=== PATIENT | female | born 1990 | race American Indian/Alaskan Native ===

== ENCOUNTER 2016-10-30 19:36 | Emergency (ER) | payer MEDICAID ==
--- NOTE | 2016-10-30 19:57 | ED PDOC ---
Arrival/HPI <Gordon Hopkins - Last Filed: 10/30/16 21:07> <Carlos Alberto Torres - Last Filed: 10/30/16 23:25> - General Chief Complaint: Shortness Of Breath Time Seen by Provider: 10/30/16 19:38 - History of Present Illness Narrative History of Present Illness (Text): 10/30/16 19:54 The patient is a 25yo F w/ no known PMhx who keeps saying "my heart hurts I want to talk to my we are ". Other history is unable to get at this time because she is having a panic attack and is refusing to answer questions. Collateral received from family; no Pmhx, does not take medicines, c section in the past, does not smoke, social drinker. 10/30/16 20:34 patient states that she has been under a lot of stress with her current , and has been having frequent panic attacks because of this. States she wanted to hurt herself, and that's why she wanted to come into the hospital. denies all other complaints. denies previous psychiatric history of hospitalization. denies drug use substance abuse. patient does not have a discrete plan to hurt herself, but does not feel safe at home alone or with other members of her family around her. denies AV hallucinations. 10/30/16 20:35 (Carlos Alberto Torres) Past Medical History - Provider Review Nursing Documentation Reviewed: Yes - Travel History Have you recently traveled outside [place] w/in the past 3 mons?: No - Cardiac Hx Cardiac Disorders: No - Pulmonary Hx Respiratory Disorders: No - Neurological Hx Neurological Disorder: No - HEENT Hx HEENT Disorder: No - Renal Hx Renal Disorder: No - Endocrine/Metabolic Hx Endocrine Disorders: No - Hematological/Oncological Hx Blood Disorders: Yes Hx Anemia: Yes Hx Blood Transfusions: Yes - Integumentary Hx Dermatological Disorder: No - Musculoskeletal/Rheumatological Hx Musculoskeletal Disorders: No - Gastrointestinal Hx Gastrointestinal Disorders: No - Genitourinary/Gynecological Hx Genitourinary Disorders: No - Psychiatric Hx Psychophysiologic Disorder: No Hx Substance Use: No <Carlos Alberto Torres - Last Filed: 10/30/16 23:25> Family/Social History - Physician Review Nursing Documentation Reviewed: Yes Family/Social History: CVA/TIA, Diabetes, Hypertension, CAD/MA Smoking Status: Former Smoker Hx Alcohol Use: Yes Hx Substance Use: No <Carlos Alberto Torres - Last Filed: 10/30/16 23:25> Allergies/Home Meds <KellieGordon - Last Filed: 10/30/16 21:07> <Carlos Alberto Torres - Last Filed: 10/30/16 23:25> Allergies/Adverse Reactions: Allergies No Known Allergies Allergy (Verified 09/02/12 03:15) Review of Systems - Review of Systems Constitutional: absent: Fatigue, Weight Change Eyes: absent: Vision Changes, Photophobia ENT: absent: Hearing Changes Respiratory: SOB Cardiovascular: absent: Chest Pain, Palpitations Gastrointestinal: absent: Abdominal Pain Genitourinary Female: absent: Dysuria, Frequency Musculoskeletal: absent: Arthralgias Skin: absent: Rash Neurological: absent: Headache, Dizziness Endocrine: absent: Diaphoresis Hemo/Lymphatic: absent: Adenopathy Psychiatric: Anxiety, Depression. absent: Suicidal Ideation <SoloMaryjimmyCarlos Alberto - Last Filed: 10/30/16 23:25> Physical Exam Temperature: Afebrile Blood Pressure: Normal Pulse: Tachycardic Respiratory Rate: Tachypneic Appearance: Positive for: Non-Toxic Pain Distress: None Mental Status: Positive for: Alert and Oriented X 3 - Systems Exam Head: Present: Atraumatic Pupils: Present: PERRL Extroacular Muscles: Present: EOMI Conjunctiva: Present: Normal Mouth: Present: Moist Mucous Membranes Pharnyx: Present: Normal. No: ERYTHEMA Neck: Present: Normal Range of Motion. No: Meningeal Signs Respiratory/Chest: Present: Clear to Auscultation, Good Air Exchange Cardiovascular: Present: Regular Rate and Rhythm, Normal S1, S2. No: Murmurs Abdomen: No: Tenderness, Distention Back: Present: Normal Inspection. No: CVA Tenderness Upper Extremity: Present: Normal Inspection. No: Cyanosis, Edema Lower Extremity: Present: Normal Inspection. No: Edema Neurological: Present: GCS=15, CN II-XII Intact, Speech Normal Skin: Present: Warm Psychiatric: Present: Alert, Oriented x 3, Normal Insight <Carlos Alberto Torres - Last Filed: 10/30/16 23:25> Vital Signs Pulse Resp BP Pulse Ox 10/30/16 23:10 89 16 138/64 100 10/30/16 20:33 20 100 10/30/16 19:48 110 H 22 147/82 100 Medical Decision Making <Gordon Hopkins - Last Filed: 10/30/16 21:07> <Carlos Alberto Torres - Last Filed: 10/30/16 23:25> ED Course and Treatment: In agreement with resident note, which includes further HPI details. Patient was seen and evaluated with resident, came up with plan and treatment together. (Gordon Hopkins) 10/30/16 19:57 will give ativan 2mg IM to help the patient calm down will get more history after 10/30/16 20:36 patient expressed wish that she wanted to hurt herself and that is why she came in will consult PES CBC BMP drug screen UA EKG and chest x-ray will be ordered 10/30/16 20:47 EKG NSR with poor R wave progression awaiting other labs 10/30/16 21:40 Pt was hypokalemic at 3.0 will replete with 40mg PO Kdur 10/30/16 21:42 HbG is 11 which is consistent with past levels 10/30/16 21:50 Pt is asymptomatic +UA will send for culture in setting of asymptomatic +UA will not treat 10/30/16 23:24 Patient was seen by PES and wants to go home patient no longer wnats to hurt self patient is not psychotic and is not a danger to herself or others patient was told to call 911 if she feels like she is in danger again patient is stable for d/c as per Dr. Hopkins (Carlos Alberto Torres) - Lab Interpretations Lab Results: 10/30/16 21:00 10/30/16 21:00 Lab Results 10/30/16 21:10: Urine Opiates Screen Negative, Urine Methadone Screen Negative, Ur Barbiturates Screen Negative, Ur Phencyclidine Scrn Negative, Ur Amphetamines Screen Negative, U Benzodiazepines Scrn Negative, U Oth Cocaine Metabols Negative, U Cannabinoids Screen Negative 10/30/16 21:10: Urine Color Yellow, Urine Appearance Sl cloudy, Urine pH 7.0, Ur Specific [place] 1.020, Urine Protein 30 H, Urine Glucose (UA) Negative, Urine Ketones >=80, Urine Blood Small H, Urine Nitrate Negative, Urine Bilirubin Negative, Urine Urobilinogen 2.0 H, Ur Leukocyte Esterase Small H, Urine RBC 1 - 3, Urine WBC 2 - 5, Ur Epithelial Cells 0 - 2, Urine Bacteria Small 10/30/16 21:00: Sodium 142, Potassium 3.0 L, Chloride 104, Carbon Dioxide 24, Anion Gap 17, BUN 14, Creatinine 0.8, Est GFR ( Amer) > 60, Est GFR (Non- Af Amer) > 60, Random Glucose 99, Calcium 9.5 10/30/16 21:00: WBC 5.1 D, RBC 3.89, Hgb 11.0 L, Hct 33.5 L, MCV 86.1, MCH 28.3 , MCHC 32.8, RDW 13.4, Plt Count 341, MPV 9.0 - RAD Interpretation Radiology Orders: 10/30/16 20:33 CHEST PORTABLE [RAD] Stat - Medication Orders Current Medication Orders: Discontinued Medications Lorazepam (Ativan) 2 mg IM ONCE ONE PRN Reason: Protocol Stop: 10/30/16 19:55 Last Admin: 10/30/16 20:19 Dose: 2 mg Potassium Chloride (K-Dur 20 Meq Er Tab) 40 meq PO STAT STA Stop: 10/30/16 21:37 Last Admin: 10/30/16 21:55 Dose: Not Given Non-Admin Reason: Patient Refused Potassium Chloride (Potassium Chloride Oral Soln) 40 meq PO STAT STA Stop: 10/30/16 21:51 Last Admin: 10/30/16 22:02 Dose: 40 meq - PA / RESEARCH ENVIRONMENTAL ENGINEER / Resident Statement MARIE has reviewed & agrees with the documentation as recorded. MARIE has examined the patient and agrees with the treatment plan. <Gordon Hopkins - Last Filed: 10/30/16 21:07> Disposition/Present on Arrival <Gordon Hopkins - Last Filed: 10/30/16 21:07> - Present on Arrival Any Indicators Present on Arrival: No History of DVT/PE: No History of Uncontrolled Diabetes: No Urinary Catheter: No History Surgical Site Infection Following: None - Disposition Have Diagnosis and Disposition been Completed?: No Disposition Time: 20:37 Patient Plan: Discharge <Carlos Alberto Torres - Last Filed: 10/30/16 23:25> - Disposition Diagnosis: Anxiety attack Disposition: HOME/ ROUTINE Patient Problems: Current Active Problems Problem Status Onset Anxiety attack Acute Condition: FAIR Discharge Instructions (ExitCare): Anxiety (ED)
[2016-10-30 20:19] VITALS: O2SAT 100; BMI 35.4
[2016-10-30 21:31] LABS: BLOOD UREA NITROGEN 14 mg/dL (7-21); CALCIUM 9.5 mg/dL (8.4-10.5); GFR AFRICAN-AMERICAN > 60; GFR NON-AFRICAN AMERICAN > 60
[2016-10-30] MEDS ORDERED: Potassium Chloride 20 mEq ER Tab PO STA (21:36)
[2016-10-30 21:39] LABS: MEAN CELL VOLUME 86.1 fL (80.0-105.0); MEAN CORPUSCULAR HEMOGLOBIN 28.3 pg (25.0-35.0); MEAN CORPUSCULAR HGB CONC 32.8 g/dl (31.0-37.0); RBC 3.89 10^6/uL (3.5-6.1); RED CELL DISTRIBUTION WIDTH 13.4 % (11.5-14.5); WHITE BLOOD COUNT 5.1 10^3/ul (4.5-11.0)
[2016-10-30 21:39] LABS: URINE BILIRUBIN NEGATIVE (NEGATIVE); URINE BLOOD SMALL (NEGATIVE); URINE GLUCOSE (UA) NEGATIVE (NEGATIVE); URINE LEUKOCYTE ESTERASE SMALL Leu/uL (NEGATIVE); URINE NITRATE NEGATIVE (NEGATIVE); URINE PROTEIN 30 mg/dL (<30 mg/dL)
[2016-10-30 21:47] LABS: URINE APPEARANCE SL CLOUDY (CLEAR); URINE COLOR YELLOW (YELLOW)
[2016-10-30] MEDS ORDERED: Potassium Chloride 40 mEq/30 ml LIQ UD PO STA (21:50)
[2016-10-30 22:00] LABS: BARBITURATES, UR NEGATIVE (NEGATIVE); BENZODIAZEPINES, UR NEGATIVE (NEGATIVE); OPIATES, UR NEGATIVE (NEGATIVE); PHENCYCLIDINE, UR NEGATIVE (NEGATIVE)
[2016-10-30 22:04] LABS: URINE EPITHELIAL CELLS 0 - 2 /hpf (0-5)
[2016-10-30 22:05] LABS: URINE BACTERIA SMALL (NEG)
[2016-10-30 23:11] VITALS: BP 138/64; PULSE 89; RESP 16
--- NOTE | 2016-10-31 08:22 | CP.PCM.PCO ---
Physician Communication Note - Physician Communication Note Physician Communication Note: pt was d/c
--- NOTE | 2016-10-31 10:37 | RAD ---
HISTORY: sob COMPARISON: No prior. FINDINGS: LUNGS: No active pulmonary disease. PLEURA: No significant pleural effusion identified, no pneumothorax apparent. CARDIOVASCULAR: Normal. OSSEOUS STRUCTURES: No significant abnormalities. VISUALIZED UPPER ABDOMEN: Normal. OTHER FINDINGS: None. IMPRESSION: No active disease.
--- NOTE | 2016-10-31 11:13 | CARD ---
APPROVED REPORT EKG Measurement Heart [id number] <Conclusion> Normal sinus rhythm Nonspecific T wave abnormality Abnormal ECG
== END 2016-10-31 00:02 | disposition home or self-care (01) ==
LOC: ED 19:36
DX: F41.9 Anxiety disorder, unspecified (principal)
CPT/HCPCS: 71010; 80048; 80324; 80345; 80346; 80349; 80353; 80358; 80361; 81001; 83992; 85027; 87086; 93005; 96372; 99284; J2060; J3480

== ENCOUNTER 2017-07-21 10:51 | Emergency (ER) | payer MEDICAID ==
[2017-07-21 11:02] VITALS: BMI 33.6
[2017-07-21 11:07] VITALS: TEMP 98.9
[2017-07-21 11:18] VITALS: RESP 17; O2SAT 99
--- NOTE | 2017-07-21 11:27 | ED PDOC ---
Arrival/HPI - General Chief Complaint: Shortness Of Breath Time Seen by Provider: 07/21/17 11:06 - History of Present Illness Narrative History of Present Illness (Text): 26 year old F c no Past medical history p/w chest pain since this morning. Pain is midsternal. Radiates up to throat, states difficulty taking deep breath. Severe in intensity. Describes as pulling. Associated with lightheadedness, possible fever last night. Denies N/V, diarrhea, constipation, numbness, or motor weakness. 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 No medications prior to arrival. Nonsmoker. No drug use. Past Medical History - Cardiac Hx Cardiac Disorders: No - Pulmonary Hx Respiratory Disorders: No - Neurological Hx Neurological Disorder: No - HEENT Hx HEENT Disorder: No - Renal Hx Renal Disorder: No - Endocrine/Metabolic Hx Endocrine Disorders: No - Hematological/Oncological Hx Blood Disorders: Yes Hx Anemia: Yes Hx Blood Transfusions: Yes - Integumentary Hx Dermatological Disorder: No - Musculoskeletal/Rheumatological Hx Musculoskeletal Disorders: No - Gastrointestinal Hx Gastrointestinal Disorders: No - Genitourinary/Gynecological Hx Genitourinary Disorders: No - Psychiatric Hx Psychophysiologic Disorder: No Hx Substance Use: No Family/Social History Family/Social History: No Known Family HX Smoking Status: Former Smoker Hx Alcohol Use: Yes Frequency of alcohol use: Socially Hx Substance Use: No Allergies/Home Meds Allergies/Adverse Reactions: Allergies No Known Allergies Allergy (Verified 07/21/17 11:07) Review of Systems - Physician Review All systems were reviewed & negative as marked: Yes - Review of Systems Constitutional: absent: Fevers Gastrointestinal: absent: Vomiting Physical Exam - Physical Exam Narrative Physical Exam (Text): Constitutional: No acute distress. Head: Normocephalic. Atraumatic. Eyes: PERRL. ENT: Moist mucous membranes. Neck: Supple. Cardiovascular: Regular rate. Chest: Reproducible chest tenderness. Respiratory: Clear to auscultation bilaterally. GI: Soft. Nontender. Nondistended. Back: No CVA tenderness. Musculoskeletal: No tenderness or swelling of extremities. Skin: No rash. Neurologic: Alert, no focal deficit. Vital Signs Temp Pulse Resp BP Pulse Ox 07/21/17 12:47 77 17 149/61 99 07/21/17 11:14 17 99 07/21/17 11:03 98.9 F 78 18 134/86 100 Medical Decision Making ED Course and Treatment: Differential includes: 1. costochondritis/chest wall pain. 2. PE. - nontachcyardic. no recent flight. No recent surgery or trauma. No OCPs. No leg swelling. No calf tenderness. 3. PNA/URI. - no cough, no fever, no tachypnea. 4. ACS. - young, no strong family history, nonsmoker 5. Dissection. - not characterized as tearing, no back pain, not hypertensive, nonsmoker 6. Pharyngitis. - No pharyngeal erythema, no exudates, no tender lymphadenopathy 07/21/17 12:58 Chest X-ray no consolidation or infitrate EKG NSR 80 bpm, no ST elevations - RAD Interpretation Radiology Orders: 07/21/17 11:33 CHEST PORTABLE [RAD] Stat - Medication Orders Current Medication Orders: Discontinued Medications Ketorolac Tromethamine (Toradol) 60 mg IM STAT STA Stop: 07/21/17 11:35 Last Admin: 07/21/17 12:11 Dose: 60 mg MAR Pain Assessment Document 07/21/17 12:11 [facility] (Rec: 07/21/17 12:12 [facility] [id number]) Pain Reassessment Is this a pain reassessment? No Sleep Is patient sleeping during reassessment? No Presence of Pain Presence of Pain Yes Pain Scale Used Pain Scale Used Numeric Location Left, Right or Bilateral Right Pain Location Body Site Chest Description Intensity of Pain at present 3 IM Administration Charges Document 07/21/17 12:11 [facility] (Rec: 07/21/17 12:12 [facility] [id number]) Injection Site MAR Injection Site Left Arm Charges for Administration # of IM Administrations 1 Disposition/Present on Arrival - Present on Arrival Any Indicators Present on Arrival: No History of DVT/PE: No History of Uncontrolled Diabetes: No Urinary Catheter: No History of Decub. Ulcer: No History Surgical Site Infection Following: None - Disposition Have Diagnosis and Disposition been Completed?: Yes Diagnosis: Chest wall pain Disposition: HOME/ ROUTINE Disposition Time: 12:59 Patient Plan: Discharge Condition: STABLE Discharge Instructions (ExitCare): Costochondritis (DC) Prescriptions: Ibuprofen 30 ml PO Q6H PRN #480 ml PRN Reason: Pain, Moderate (4-7) Forms: [facility] [employer] (Vietnamese), WORK NOTE
[2017-07-21 12:47] VITALS: BP 149/61; PULSE 77
--- NOTE | 2017-07-21 13:10 | RAD ---
HISTORY: Chest pain COMPARISON: 10/30/2016 FINDINGS: LUNGS: No active pulmonary disease. PLEURA: No significant pleural effusion identified, no pneumothorax apparent. CARDIOVASCULAR: No radiographic findings to suggest acute or significant cardiovascular disease. OSSEOUS STRUCTURES: No significant abnormalities. VISUALIZED UPPER ABDOMEN: Normal. OTHER FINDINGS: None. IMPRESSION: No active disease. No significant interval change compared to the prior examination(s).
--- NOTE | 2017-07-21 20:03 | CARD ---
APPROVED REPORT EKG Measurement Heart [id number] <Conclusion> Normal sinus rhythm Septal infarct, age undetermined Abnormal ECG
== END 2017-07-21 13:27 | disposition home or self-care (01) ==
LOC: ED 10:51
DX: R07.89 Other chest pain (principal); Z87.891 Personal history of nicotine dependence
CPT/HCPCS: 71045; 93005; 96372; 99283; J1885